=== PATIENT | male | born 1975 | race Caucasian/White ===

== ENCOUNTER 2025-04-26 09:57 | Emergency (ER) | payer OTHER, SELFPAY ==
--- NOTE | ~2025-04-26 | XR_ITS ---
EXAMINATION: XR CHEST CLINICAL INFORMATION: palpitations and dizziness COMPARISON: None available. TECHNIQUE: 2 views of the chest were obtained. FINDINGS: The cardiac, hilar, and mediastinal contours are normal. The lungs are mildly hyperaerated, however clear bilaterally. There is no pneumothorax or pleural effusion. There is no focal osseous or soft tissue abnormality. XR/XR chest 2V IMPRESSION: No active pulmonary disease. Electronically signed by: John Cruz MD 04/26/2025 10:25 AM EDT
--- NOTE | 2025-04-26 10:03 | ECG_ITS ---
Test Reason : palpitations Blood Pressure : */* mmHG Vent. Rate : 60 BPM Atrial Rate : 60 BPM P-R Int : 144 ms QRS Dur : 96 ms QT Int : 402 ms P-R-T Axes : 30 42 35 degrees QTcB Int : 402 ms Normal sinus rhythm Nonspecific ST abnormality Abnormal ECG When compared with ECG of 27-Nov-2007 22:38, MANUAL COMPARISON REQUIRED PREVIOUS ECG IS INCOMPATIBLE Referred By: Generic ED Physician Electronically Signed By: CAMMIE TURNER MD
[2025-04-26 10:09] VITALS: BP 148/87; PULSE 70; RESP 18; TEMP 36.6; O2SAT 98; BMI 31.7
[2025-04-26 10:30] LABS: MANUAL DIFF FLAG NO
[2025-04-26 10:36] LABS: Hematocrit 41.2 % (42.0-52.0); Hemoglobin 14.3 g/dl (14.0-18.0); Imm Gran Abs Auto 0.01 X10*3/uL (0.00-0.03); Imm Gran Pct Auto 0.1 % (0.0-0.4); Lymphocytes Absolute Auto 2.2 X10*3/uL (1.2-4.9); Mean Corpuscular HGB Conc 34.7 g/dl (31.0-36.0); Mean Corpuscular Hemoglobin 29.4 pg (27.0-33.0); Mean Corpuscular Volume 84.6 fL (80.0-98.0); NRBC Abs Auto 0.000 X10*3/uL (0.0-0.012); NRBC Pct Auto 0.0 /100WBC (0.0-0.2); Platelet Count 255 X10*3/uL (160-400); Red Blood Count 4.87 X10*6/uL (4.60-5.80); White Blood Count 6.7 X10*3/uL (4.8-10.8)
[2025-04-26 10:51] LABS: Anion Gap 10 (12-20); Blood Urea Nitrogen 19 mg/dL (9-16); Calcium 9.2 mg/dL (8.4-10.2); Carbon Dioxide 26 mmol/L (22-29); Chloride 110 mmol/L (96-108); Creatinine Clr Calc Pharmacy 113.2; Estimated Glomerular Filt Rate > 60; Magnesium 1.6 mg/dL (1.6-2.6); Potassium 4.2 mmol/L (3.3-5.1); Sodium 142 mmol/L (135-145)
[2025-04-26 11:00] LABS: Troponin-I High Sensitivity < 2.7 ng/L (<3.5-35.0)
[2025-04-26 13:26] VITALS: BP 137/77; PULSE 62; RESP 14; TEMP 36.7; O2SAT 97
[2025-04-26] MEDS: Magnesium Sulfate/H2O 2 GM/50 ML PIGGYBACK IV (13:33)
--- NOTE | 2025-04-26 13:55 | ED.ARRPALP ---
HPI - Arrhythmia/Palpitations General Chief Complaint: Arrhythmia/Palpitations Stated Complaint: Heart palpitations Time Seen by Provider: 04/26/25 13:18 Source: patient Mode of arrival: ambulatory Limitations: no limitations History of Present Illness ED Provider: YAN HPI narrative: 50 yo male with PMH of HTN drinks 2 cups of coffee no alcohol or drug use. He notes over the past week at rest and working he feels his heart racing and gets nauseated at times. No chest pain though did have L arm pain. He notes no exertional chest pain. He denies any recent travel, procedures, infections, change in medications or any other concerns. MD complaint: rapid heart beat, heart racing and palpitations Onset (ago): week(s) (1) Duration: intermittent Severity: mild Context: occurred during rest and occurred during exertion Associated symptoms: nausea Related Data Allergies Allergy/AdvReac Type Severity Reaction Status Date / Time No Known Allergies Allergy Mild NOT Verified 04/26/25 10:10 APPLICABLE Review of Systems Review of Systems: Constitutional : No Weight loss, No Fever, No Chills ENT/Mouth : No sore throat, No Rhinorrhea Eyes: No Eye Pain, No Swelling Cardiovascular : no Chest Pain, no SOB, no Dyspnea on Exertion, No Orthopnea, No Edema, pos Palpitations Respiratory : No Cough, No Sputum Gastrointestinal : no Nausea, No Vomiting, No Diarrhea, No abdominal Pain, No Hematochezia, No Melena Genitourinary : No Dysuria, No Urinary Frequency Musculoskeletal : No joint pain, No Myalgias, No Joint Swelling Skin : No Skin Lesions, No rash Neuro : No Weakness, No Numbness, pos Dizziness, No Headache All other systems reviewed and are negative [facility] Past Medical History Attestation statement: The following information was validated with the patient. Source: old records reviewed Medical History HTN (hypertension) Social History Social History (Updated 04/26/25 @ 14:05 by Marilynn Arreaga DO) Patient Tobacco Use Status: Former Tobacco user Physical Exam Vital Signs: Vital Signs: Last Vital Signs Temp 98.1 F 04/26/25 13:26 Pulse 62 04/26/25 13:26 Resp 14 04/26/25 13:26 BP 137/77 04/26/25 13:26 Pulse Ox 97 04/26/25 13:26 O2 Del Method Room Air 04/26/25 13:26 BMI result Body Mass Index 31.7 Appearance: Alert. Oriented X3. No acute distress. Eyes: Pupils equal, round and reactive to light. ENT: Pharynx normal. Neck: Normal inspection. Neck supple. CVS: Normal heart rate and rhythm. Pulses normal. Noted on tele he had intermittent infrequent PACs but HR was in 70s Respiratory: No respiratory distress. Breath sounds normal. Abdomen: Soft and nontender. Skin: Skin warm and dry. Normal skin color. Normal skin turgor. Extremities: No lower extremity edema. No calf ttp Neuro: Oriented X 3. No motor deficit. No sensory deficit. CN2-12 intact Medications Administered Generic Name Dose Route Start Last Admin Trade Name Freq PRN Reason Stop Dose Admin Magnesium Sulfate 2 gm in 50 mls @ 25 mls/hr 04/26/25 13:21 04/26/25 13:33 Magnesium Sulfate/H2o IV 04/26/25 15:20 25 mls/hr ONCE ONE Administration Medical Decision Making Medical Decision Making [facility] Narrative: 50 yo male with PMH of HTN but no hx of CAD no recent travel or procedures. He has no risk factors for VTE. No other causes of palpitations that I can think of he is not tachycardic or hypoxic. At this time could be related to lyte abnormality he has no other symptoms such as weight loss or insomnia to suggest hyperthyroidism. Differential Diagnosis Differential Diagnoses: The differential diagnosis associated with the presentation includes lyte abnormality, atypical for ACS, well score for PE negative, PACs/PVCs Admission/Observation Consideration of admission/observation: Escalation of care including admission/observation considered work up reassuring has some PACs otherwise normal HEART score is 3 Lab Data [facility] Lab Attestation statement: I reviewed the patient's lab results. Mag 1.6 will replete. 04/26/25 10:25 04/26/25 10:25 Labs: Lab Results 04/26/25 Range/Units 10:25 WBC 6.7 (4.8-10.8) X10*3/uL RBC 4.87 (4.60-5.80) X10*6/uL Hgb 14.3 (14.0-18.0) g/dl Hct 41.2 L (42.0-52.0) % MCV 84.6 (80.0-98.0) fL MCH 29.4 (27.0-33.0) pg MCHC 34.7 (31.0-36.0) g/dl RDW 12.4 (11.0-16.0) % Plt Count 255 (160-400) X10*3/uL MPV 9.3 L (9.4-12.4) fL Immature Gran % (Auto) 0.1 (0.0-0.4) % Neut % (Auto) 53.7 (45-73) % Lymph % (Auto) 32.9 (20-40) % Ada % (Auto) 7.5 (2-11) % Eos % (Auto) 5.4 H (0-4) % Baso % (Auto) 0.4 (0-2) % Lymph # (Auto) 2.2 (1.2-4.9) X10*3/uL Ada # (Auto) 0.5 (0.1-1.2) X10*3/uL Eos # (Auto) 0.4 (0.0-0.4) X10*3/uL Baso # (Auto) 0.0 (0.0-0.2) X10*3/uL Abs Immat Gran (auto) 0.01 (0.00-0.03) X10*3/uL Absolute Neuts (auto) 3.6 (2.0-8.3) x10*3/uL Absolute Nucleated RBC 0.000 (0.0-0.012) X10*3/uL Nucleated RBC % (auto) 0.0 (0.0-0.2) /100WBC Sodium 142 (135-145) mmol/L Potassium 4.2 (3.3-5.1) mmol/L Chloride 110 H (96-108) mmol/L Carbon Dioxide 26 (22-29) mmol/L Anion Gap 10 L (12-20) BUN 19 H (9-16) mg/dL Creatinine 1.01 (0.5-1.4) mg/dL Estim Creat Clear Calc 113.2 Estimated GFR > 60 Random Glucose 116 H (60-115) mg/dL Calcium 9.2 (8.4-10.2) mg/dL Magnesium 1.6 (1.6-2.6) mg/dL Troponin I High Sens < 2.7 (<3.5-35.0) ng/L Independent Interpretation I performed an independent interpretation of an: EKG and Plain X-Ray (normal ) Interpretation: Rate: 60 Rhythm: NSR Kendall: normal Normal P waves. Normal AMAN. Normal QRS complex. ST T wave : t wave inversion V1, no TIFFANY qTC: 402 prior studies: normal The study has been interpreted contemporaneously by me. . Radiology Impression Discussion of test interpretation with radiology: I have reviewed the radiologist's reading. External Record Review External record reviewed: Outpatient record Prescription Management I considered prescription management with: Other Discharge Plan Discharge Clinical Impression: Palpitations, PAC (premature atrial contraction) Instructions: Heart Palpitations (ED), Premature Atrial Contractions (ED) Additional Instructions: your magnesium was slightly low we repleted it your labs otherwise are normal your EKG is normal at this time you do need to get a primary care doctor as you likely will need outpatient holter monitor please cut caffeine down to 1 cup a day return for any worsening symptoms or concerns. Stand Alone Forms: Work/School Release Print Language: [place]an
--- NOTE | 2025-04-26 15:12 | PC.NURSE ---
pt unable to wait for mag to finish infusing d/t ride being at the ED already.
[2025-04-26 15:17] VITALS: BP 140/88; PULSE 88; RESP 16; TEMP 35.8; O2SAT 98
--- OUTSIDE RECORDS SUMMARY | 2025-04-26 15:25 | XMS_ITS | Clinical Summary ---
Author Organization [facility] Address [address] [place] [address] Care Team Providers Care Senior Financial Consultant Name Role Phone Unavailable Primary Care Provider Unavailabl e Social History Tobacco Use Types Packs/Day Years Used Date Smoking Tobacco: Never Assessed Sex and Gender Information Value Date Recorded Sex Assigned at Not on file Legal Sex Male 5:03 PM EDT Gender Identity Not on file Sexual Orientation Not on file Last Filed Vital Signs Vital Sign Reading Time Taken Comments Blood Pressure 110/80 08/17/2014 10:22 AM EST Pulse - - Temperature - - Respiratory Rate - - Oxygen Saturation - - Inhaled Oxygen Concentration - - Weight - - Height - - Body Mass Index - - Plan of Treatment Health Maintenance Due Date Last Done Comments Hepatitis C Virus Screening 1975 HIV Screening 01/03/1988 DTaP/Tdap/Td Vaccines (1 - Tdap) 1994 Hepatitis B Vaccines (1 of 3 - 19+ 3-dose series) 12/08 COVID-19 Vaccine (1 - 2023- season) 2024 Pneumococcal Vaccines 50+ (1 of 1 - PCV) 2025 Zoster (Shingles) Vaccine (1 of 2) 2025
== END 2025-04-26 15:17 | disposition home or self-care (01) ==
PROVIDERS: Emergency Provider Emergency Medicine
DX: R00.2 Palpitations (principal); I49.1 Atrial premature depolarization; R42 Dizziness and giddiness; R11.0 Nausea
CPT/HCPCS: 36415; 71046; 80048; 83735; 84484; 85025; 93005; 96365; 96366; 99284; 99285; J3475

== ENCOUNTER → 2025-04-26 10:03 | Outpatient (BNV) | payer OTHER, SELFPAY | PROVIDERS: Visit Provider Internal Medicine Cardiovascular Disease | DX: R94.31 Abnormal electrocardiogram [ECG] [EKG] (principal); R00.2 Palpitations | CPT/HCPCS: 93010 ==

== ENCOUNTER → 2025-04-26 10:12 | Outpatient (BNV) | payer OTHER, SELFPAY | PROVIDERS: Visit Provider Radiology Diagnostic Radiology | DX: R00.2 Palpitations (principal) | CPT/HCPCS: 71046 ==